=== PATIENT | female | born 1955 | race Caucasian/White ===

== ENCOUNTER → 2016-12-01 | Outpatient (CLI) | payer OTHER | LOC: FIMAGING 09:25 | DX: Z12.31 Encounter for screening mammogram for malignant neoplasm of breast (principal) | CPT/HCPCS: G0202 ==

== ENCOUNTER → 2016-12-22 | Outpatient (CLI) | payer OTHER | LOC: FIMAGING 10:16 | PROVIDERS: ATTEND Family Medicine | DX: Z12.39 Encounter for other screening for malignant neoplasm of breast (principal); N64.59 Other signs and symptoms in breast | CPT/HCPCS: G0206 ==

== ENCOUNTER → 2018-01-26 | Outpatient (CLI) | payer OTHER | LOC: FIMAGING 09:17 | DX: Z12.31 Encounter for screening mammogram for malignant neoplasm of breast (principal) ==